=== PATIENT | female | born 1985 | race Caucasian/White ===

== ENCOUNTER 2018-10-02 07:39 | Outpatient (CLI) | payer BC ==
--- NOTE | 2018-10-02 08:34 | ULT ---
US OB Complete STANDARD History: Anatomy scan. Z 34.80 normal in multigravida Comparison: None. Findings: Real-time grayscale, color, and spectral analysis of the gravid uterus was performed. Cervix is closed and measures 3.1 cm in length. The placenta is posterior and the presentation is cep halic. Single viable intrauterine with heart rate documented at 144 bpm. No placenta previa. Biometry: Biparietal diameter: 4.24 cm, 18 weeks 6 day Head circumference: 15.96 cm, 18 weeks 6 day Abdominal circumference: 12.55 cm, 18 week 2 day Femur length: 2.68 cm, 18 week 2 day Average ultrasound age is 18 week 4 day with estimated date of delivery March 01, 2019 Estimated weight: 8 ounces, 34th percentile Anatomy: Head, cerebellum, cisterna magna, lateral ventricles, four-chamber heart, stomach, kidneys, cord inse rtion, bladder, spine are normal as well as the upper and lower extremities. Three-vessel cord is not well seen nor is the lips/nose. Impression: Normal single viable intrauterine . Limited anatomy scan due to age and mo tion.
== END 2018-10-02 07:40 | disposition home or self-care (01) ==
LOC: BICULT 07:39
PROVIDERS: ATTEND Family Medicine
DX: Z34.82 Encounter for supervision of other normal pregnancy, second trimester (principal); Z3A.18 18 weeks gestation of pregnancy
CPT/HCPCS: 76805

== ENCOUNTER 2018-12-26 15:41 | Inpatient (IN) | payer BC ==
[2018-12-26] MEDS ORDERED: hydrALAZINE 20 MG/ML VIAL SLOW IVP PRN (16:46)
[2018-12-26] MEDS ORDERED: Zolpidem Tartrate 5 MG TAB PO PRN (16:46)
[2018-12-26] MEDS ORDERED: Ondansetron PF 4 MG/2 ML Vial IVP PRN (16:46)
[2018-12-26] MEDS ORDERED: Promethazine HCl 25 MG/ML VIAL IM PRN (16:46)
[2018-12-26] MEDS ORDERED: Acetaminophen 500 MG TAB PO PRN (16:46)
[2018-12-26 16:52] VITALS: BMI 34.6
[2018-12-26] MEDS ORDERED: Lidocaine 1% (PF) 30 ML VIAL ONE (17:13)
[2018-12-26 18:25] LABS: Bacteria/HPF 2+ HPF (None Seen); Bilirubin Negative (Negative); Blood, Urine Negative (Negative); Clarity Turbid (Clear); Glucose, Urine (Dipstick) Normal (Negative); Leukocyte 500 Leu/uL (Negative); Nitrite Negative (Negative); Protein, Urine (Dipstick) 20 mg/dL (Neg-Trace); Urobilinogen Normal mg/dL (Less than 2); WBC/HPF 21-50 HPF (0-3)
[2018-12-26] MEDS ORDERED: ALPRAZolam 0.25 MG TAB PO PRN (18:27)
[2018-12-27 06:51] LABS: ALT (SGPT) 32 U/L (8-55); AST (SGOT) 24 U/L (5-34); Albumin 2.7 g/dL (3.5-5.0); Alkaline Phosphatase 127 U/L (40-110); Anion Gap 12 mmol/L (10-20); BUN (Urea Nitrogen) 6 mg/dL (7.0-18.7); Bilirubin, Total 0.2 mg/dL (0.2-1.2); Calc. Creatinine Clearance 169 mL/min (70-130); Calcium 8.3 mg/dL (7.8-10.44); Carbon Dioxide 23 mmol/L (22-29); Chloride 106 mmol/L (98-107); Estimated GFR-MDRD Greater than 90; Globulin 2.7 g/dL (2.4-3.5); Glucose 77 mg/dL (70-105); Potassium 4.1 mmol/L (3.5-5.1); Protein, Total 5.4 g/dL (6.0-8.3); Sodium 137 mmol/L (136-145)
[2018-12-27 07:25] LABS: Hemoglobin 10.4 g/dL (12.0-16.0); Mean Corpuscular HGB CONC 33.9 g/dL (32.0-36.0); Mean Corpuscular Hemoglobin 28.2 pg (27.0-31.0); Mean Corpuscular Volume 83.2 fL (78.0-98.0); Platelet Count 154 thou/uL (130-400); RBC Distribution Width 11.2 % (11.5-14.5); Red Blood Cell (RBC) Count 3.68 mill/uL (4.20-5.40); White Blood Cell (WBC) Count 7.3 thou/uL (4.8-10.8)
--- NOTE | 2018-12-27 09:30 | ULT ---
LIMITED OB ULTRASOUND: Date: 12/27/18 HISTORY: Polyhydramnios. FINDINGS: A single, live intrauterine gestation is seen, with hydrops. heart rate measures 132 beat s/minute. Placenta is posteriorly located without placenta previa. position is vertex. ROBYN jimmie ures 34.2 cm. IMPRESSION: Polyhydramnios. POS: [facility]
[2018-12-27] MEDS ORDERED: Lidocaine 1% (PF) 30 ML VIAL SC PRN (10:59)
[2018-12-27] MEDS ORDERED: Acetaminophen/Codeine 30-300mg Tablet PO PRN (10:59)
[2018-12-27] MEDS ORDERED: Misoprostol 200 MCG TAB PR PRN (10:59)
[2018-12-27] MEDS ORDERED: HYDROcodone/Acetaminophen 5/325 mg Tablet PO PRN (10:59)
[2018-12-27] MEDS ORDERED: NS w/ Oxytocin 10 units 500 ML IV SCH (11:00)
[2018-12-27] MEDS: Misoprostol 100 MCG TAB VAG SCH ×3 (14:30→17:21)
--- NOTE | 2018-12-27 17:06 | HP ---
ADMISSION DIAGNOSIS: A 30-week intrauterine with hydrops fetalis, critical aortic stenosis, and polyhydramnios. HISTORY OF PRESENT ILLNESS: Donna is a 33-year-old white female patient, well known to me from my clinic G3, P2-0-0-2 at 30 weeks gestation, who was evaluated in the office on 12/17 for routine visit. Noted to have fundal height of 37 cm and ultrasound revealed severe polyhydramnios and ascites. Maternal Medicine evaluation was obtained through [facility] in [place] on 12/22 and then recommended the patient to be transported to [place] where she was subsequently admitted for observation and amnioreduction was performed. Her initial ROBYN was 51, reduced down to 29. Noted at that time, the baby appeared to have some severe cardiac abnormalities. She was discharged home and readmitted the following day at [facility]. On 12/24/2018, the patient underwent multiple testing as well as evaluation with specialists including Maternal Medicine and Neonatology and Pediatric Cardiology. A MRI was obtained, which revealed hydrops concerning for cardiac dysfunction, polyhydramnios, and severe critical aortic stenosis. Options were discussed with the parents and due to severe abnormalities noted with the baby, the parents have opted for observation and comfort care at the time of delivery of their child. The patient was observed there. There was some concern with some intermittent elevated blood pressures as well as peripheral edema and concern for possibly developing mirror syndrome. She was stable for discharge on 12/26. I have spoken with the Dr. Hein, her Maternal Medicine specialist multiple times throughout the day. The patient was transported at that time in stable condition via private car with her driving and presented to [facility] to be admitted to Labor and Delivery locally at the patient's preference. The patient did present with her records. She was admitted to the floor. Her blood pressure was monitored and noted that she did have some intermittent elevated blood pressure readings, particularly with sitting up due to emotional status and when conversing. Blood pressure ranged in the 110s to 150s over 60s to 80s. heart tones were obtained and baby remained active. PAST MEDICAL HISTORY: Significant for normal spontaneous vaginal delivery with precipitous labor and delivery x2. Noted that her second child does have some developmental delays with gross motor and currently under treatment. care had otherwise been uncomplicated. Past medical history otherwise insignificant. MEDICATIONS: Include vitamins. ALLERGIES: INCLUDE BENZACLIN AND SULFA. FAMILY HISTORY: Insignificant. SOCIAL HISTORY: She is to the father of all of her children. Currently, a homemaker. Does not smoke or drink alcohol. REVIEW OF SYSTEMS: The patient denies any chest pain. Does complain of shortness of breath when in the supine position. She denies any fever or chills. No loss of fluid. No vaginal bleeding. No vaginal discharge. No urinary symptoms. PHYSICAL EXAMINATION: VITAL SIGNS: On presentation, blood pressure 146/87, pulse of 72, respiratory rate 18. LUNGS: Clear to auscultation. CARDIOVASCULAR: Regular rate and rhythm without murmur. ABDOMEN: Soft and nontender. Noted a gravid uterus. EXTREMITIES: The patient does have pitting edema to the mid tib-fib area. SIGNIFICANT LABORATORY STUDIES: Brought with the patient from transfer include a CBC with a hemoglobin of 10.4, platelet count of 168, AST 32, ALT 34. Urinalysis negative for protein. Ultrasound done the previous day noted ROBYN of 30. ASSESSMENT AND PLAN: 1. A 30-week intrauterine with severe congenital anomalies including hydrops with critical aortic stenosis and polyhydramnios and elevated blood pressures. 2. Elevated blood pressures and mom will admit for observation with blood pressures, repeat laboratory, and ultrasound in the morning. Job ID: [id number]
[2018-12-28] MEDS: Misoprostol 100 MCG TAB VAG SCH ×3 (04:26→19:33)
[2018-12-28] MEDS: NS w/ Oxytocin 10 units 500 ML IV SCH ×2 (04:27→19:33)
[2018-12-28] MEDS ORDERED: Lactated Ringer's 1,000 ML IV SCH (04:45)
[2018-12-28] MEDS ORDERED: Lidocaine 1% (PF) 30 ML VIAL ONE (07:12)
[2018-12-28] MEDS: NS / Oxytocin 40 units/1000ml 1,000 ML IV PRN ×2 (07:50→10:49)
[2018-12-28] MEDS: Acetaminophen 500 MG TAB PO SCH ×2 (08:00→14:28)
[2018-12-28] MEDS ORDERED: HYDROcodone/Acetaminophen 5/325 mg Tablet PO PRN (13:41)
[2018-12-28] MEDS ORDERED: Lanolin Ointment 7 GM TUBE TOP PRN (13:41)
[2018-12-28] MEDS ORDERED: NS / Oxytocin 40 units/1000ml 1,000 ML IV SCH (13:41)
[2018-12-28] MEDS ORDERED: Benzocaine-Menthol 82.5 ML CAN TOP PRN (13:41)
[2018-12-28] MEDS ORDERED: Ondansetron PF 4 MG/2 ML Vial IVP PRN (13:41)
[2018-12-28] MEDS ORDERED: Milk Of Magnesia 30 ML UDCUP PO PRN (13:41)
[2018-12-28] MEDS ORDERED: Zolpidem Tartrate 5 MG TAB PO PRN (13:41)
[2018-12-28] MEDS ORDERED: hydrALAZINE 20 MG/ML VIAL SLOW IVP PRN (13:41)
[2018-12-28] MEDS ORDERED: ALPRAZolam 0.25 MG TAB PO PRN (13:41)
[2018-12-28] MEDS ORDERED: traMADol HCl 50 MG TAB PO PRN (13:41)
[2018-12-28] MEDS ORDERED: Bisacodyl 10 MG SUPP PR PRN (13:41)
[2018-12-28] MEDS ORDERED: Acetaminophen/Codeine 30-300mg Tablet PO PRN (13:41)
[2018-12-28] MEDS: Ferrous Sulfate 325 MG TAB PO SCH (19:06)
[2018-12-28] MEDS: Docusate Calcium (SURFAK) 240 MG CAP PO SCH (21:09)
[2018-12-29] MEDS: Acetaminophen 325 MG TAB PO PRN ×2 (00:49→06:24)
[2018-12-29 05:56] LABS: Hemoglobin 9.7 g/dL (12.0-16.0); Mean Corpuscular HGB CONC 31.7 g/dL (32.0-36.0); Mean Corpuscular Hemoglobin 26.6 pg (27.0-31.0); Mean Corpuscular Volume 83.8 fL (78.0-98.0); Mean Platelet Volume 11.8 fL (7.4-10.4); Platelet Count 164 thou/uL (130-400); RBC Distribution Width 11.3 % (11.5-14.5); Red Blood Cell (RBC) Count 3.66 mill/uL (4.20-5.40)
[2018-12-29 08:11] VITALS: BP 119/72; TEMP 98.6
[2018-12-29] MEDS: Ferrous Sulfate 325 MG TAB PO SCH (08:48)
[2018-12-29] MEDS: Docusate Calcium (SURFAK) 240 MG CAP PO SCH (08:49)
[2018-12-29] MEDS ORDERED: Prenatal Vitamin 1 TAB PO SCH (09:00)
--- NOTE | 2018-12-29 17:09 | DIS ---
DATE OF ADMISSION: 12/26/2018 DATE OF DISCHARGE: 12/29/2018 DISCHARGE DIAGNOSES: 1. A 30-week intrauterine with Hydrops fetalis secondary to critical aortic stenosis. 2. Polyhydramnios. 3. 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 HOSPITAL COURSE: Amairani is a 33-year-old white female, G3, P2-0-1-2, who has been admitted on 12/26 after discharge from [facility]. She had been evaluated there with multiple Maternal- Medicine specialist and general pediatrician due to recent diagnosis of polyhydramnios. The baby was diagnosed with critical aortic stenosis, did not recommend any cardiac intervention. She developed some intermittent elevated blood pressures. Recommendation after discharge to be admitted to [facility]. She was admitted initially for observation, but noted that her blood pressures remained intermittently elevated and she continued to have 1 to 2+ edema. Diagnosis is made of preeclampsia without severe symptoms, but developing Mirror syndrome. Discussed all risks with the patient and elected for induction of labor. A consult had been obtained prior to this with agreement with plan of care. The patient underwent Cytotec followed by Pitocin induction and subsequently less than 24 hours later, delivered a viable male with noted ascites. Baby was wrapped in a warm blanket and handed to the care of the parents for compassionate care, was given by the nursing staff as well as family. The baby was pronounced approximately 2 hours later, although the parents opted to continue to have care of the baby in the room including bathing, dressing, and additional time with the baby. [place] was later that evening [place] [facility] [place] subsequently to the home. Mother was placed on the floor, noted her blood pressure with treatment with low-dose metoprolol and Ambien remained in the normal range throughout the night. She had minimal bleeding. It is becoming very well the following morning and requesting discharge home. Precautions were given to the mom. She will continue to monitor her blood pressure at home twice a day. We will do a phone office call within 1 to 2 days to her and follow her up in the office in less than 1 week. Job ID: [id number]
== END 2018-12-29 10:01 | disposition home or self-care (01) | DRG 807 ==
LOC: L&D/OP 15:41 → L&D 17:28 → 3SE 12-28 19:30
PROVIDERS: ADMIT Family Medicine; ATTEND Family Medicine
PROC: 10E0XZZ Delivery of Products of Conception, External Approach (ICD-10-PCS; principal; 2018-12-26)
PROC: 3E033VJ Introduction of Other Hormone into Peripheral Vein, Percutaneous Approach (ICD-10-PCS; 2018-12-26)
DX: O36.23X0 Maternal care for hydrops fetalis, third trimester, not applicable or unspecified (principal); Z37.0 Single live birth; O40.3XX0 Polyhydramnios, third trimester, not applicable or unspecified; Z3A.30 30 weeks gestation of pregnancy; O14.04 Mild to moderate pre-eclampsia, complicating childbirth; O75.89 Other specified complications of labor and delivery
CPT/HCPCS: 36415; 76815; 80053; 81001; 82570; 85027; 86900; 86901; 88307; J2001; J2590